=== PATIENT | female | born 1960 ===

== ENCOUNTER 2025-01-18 17:42 | Outpatient (REF) | payer MEDICARE, SELFPAY ==
[2025-01-18 20:20] LABS: ESR 4 mm/hr (0-30)
[2025-01-18 20:21] LABS: Abs Immature Grans 0.01 10^3/uL (0.0-0.06); Absolute Basophil Count 0.04 10^3/uL (0.0-0.2); Absolute Eosinophil Count 0.16 10^3/uL (0.0-0.7); Absolute Lymphocyte Count 1.86 10^3/uL (1.2-3.4); Absolute Monocyte Count 0.41 10^3/uL (0.1-0.8); Absolute Neutrophil Count 2.77 10^3/uL (1.2-6.7); Basophils % 0.8 %; HCT 38.5 % (36.0-46.0); HGB 13.1 g/dL (11.2-15.7); Immature Grans % 0.2 %; Lymphocytes % 35.4 %; MCH 34.1 pg (27.0-33.0); MCV 100 fL (80-95); MPV 12.4 fL (8.0-11.0); Monocytes % 7.8 %; Neutrophils % 52.8 %; Platelet Count 216 10^3/uL (130-400); RBC 3.84 10^6/uL (3.93-5.22); RDW 13.7 % (11.7-14.6); WBC 5.25 10^3/uL (4.4-10.8)
[2025-01-18 22:19] LABS: ALT 28 U/L (14-59); AST 32 U/L (15-37); Albumin 4.4 g/dL (3.4-5.0); Alkaline Phosphatase 53 U/L (46-116); Anion Gap 8.4 mmol/L (3-11); BUN 13 mg/dL (7-18); Bilirubin, Total 0.4 mg/dL (0.2-1.0); CO2 28.6 mmol/L (21.0-32.0); CREATININE 0.8 mg/dL (0.55-1.02); Calcium 9.4 mg/dL (8.5-10.1); Calculated LDL 118 mg/dL (<100); Chloride 104 mmol/L (98-107); Cholesterol 216 mg/dL (<200); Estimated GFR 81.21 (mL/min/1.73m2); Glucose 83 mg/dL (74-106); HDL Cholesterol 91 mg/dL (>or=50); Potassium 3.6 mmol/L (3.5-5.1); Sodium 141 mmol/L (136-145); TSH (W/Ref FT4) 1.06 uIU/mL (0.36-3.74); Total Protein 7.5 g/dL (6.4-8.2); Triglyceride 37 mg/dL (<150); Vitamin D 25 Total 38 ng/mL (30-100)
[2025-01-19 01:00] LABS: C-Reactive Protein < 0.50 mg/dL (<or=0.5)
[2025-01-19 20:51] LABS: Rheumatoid Factor <8.6 IU/mL (<12.0)
[2025-01-19 21:52] LABS: Thyroglobulin Antibody 56 U/mL (<=60)
[2025-01-21 14:48] LABS: Thyroperoxidase Antibody >1300 U/mL (<=60)
[2025-01-21 15:13] LABS: ANA Interpretation Positive (Negative); ANA Titer Pattern 1:80 Speckled; ANA Titer Pattern 2 1:160 Nucleolar
== END 2025-01-18 17:43 | disposition home or self-care (01) ==
LOC: NCHCN 17:42
PROVIDERS: Visit Provider Physician Assistant
DX: E06.3 Autoimmune thyroiditis (principal); M81.0 Age-related osteoporosis without current pathological fracture; G43.909 Migraine, unspecified, not intractable, without status migrainosus; M25.59 Pain in other specified joint; Z13.220 Encounter for screening for lipoid disorders
CPT/HCPCS: 80053; 80061; 82306; 85652; 84443; 85025; 86038; 86140; 86376; 86431; 86800